=== PATIENT | female | born 1965 | race Caucasian/White ===

== ENCOUNTER 2017-02-20 02:58 | Emergency (ER) | payer MEDICAID, SELFPAY ==
[2017-02-20 03:13] VITALS: RESP 16
[2017-02-20 03:46] LABS: RBC URINE 35 /hpf (0-3); URINE BACTERIA RARE (<OCC); URINE BILIRUBIN NEGATIVE (NEGATIVE); URINE BLOOD 2+ (NEGATIVE); URINE COLOR Yellow (YELLOW); URINE GLUCOSE (UA) NORMAL (Normal); URINE KETONE NEGATIVE (NEGATIVE); URINE LEUKOCYTE ESTERASE 2+ Leu/uL (Negative); URINE PROTEIN 1+ mg/dL (NEGATIVE); URINE UROBILINOGEN NORMAL mg/dL (0.2-1.0); WBC URINE 59 /hpf (0-5)
[2017-02-20] MEDS ORDERED: Sodium Chloride 0.9% 500 ML IV STA (03:51)
[2017-02-20] MEDS ORDERED: Sodium Chloride 0.9% 1,000 ML ONE (03:58)
[2017-02-20 04:03] LABS: BASO # 0.1 K/uL (0.0-0.2); BASO % 0.5 % (0.0-2.0); EOS # 0.3 K/uL (0.0-0.7); EOS % 2.3 % (0.0-4.0); LYMPH # 1.7 K/uL (1.0-4.3); LYMPH % 13.6 % (20.0-40.0); MEAN CELL VOLUME 87.1 fL (81.0-99.0); MEAN CORPUSCULAR HEMOGLOBIN 29.1 pg (27.0-31.0); MEAN CORPUSCULAR HGB CONC 33.4 g/dL (33.0-37.0); MEAN PLATELET VOLUME 8.5 fL (7.2-11.7); MONO # 0.7 K/uL (0.0-0.8); MONO % 5.9 % (0.0-10.0); RED CELL DISTRIBUTION WIDTH 13.2 % (11.5-14.5); WHITE BLOOD COUNT 12.2 K/uL (4.8-10.8)
[2017-02-20 04:12] LABS: CHLORIDE 102 mmol/L (98-107)
[2017-02-20 04:13] LABS: POTASSIUM 4.6 mmol/L (3.6-5.2); SODIUM 139 mmol/L (132-148)
[2017-02-20 04:15] LABS: ALB/GLOB RATIO 1.4 (1.0-2.1); ALKALINE PHOSPHATASE 75 U/L (38-126); ALT/SGPT 37 U/L (9-52); AST/SGOT 27 U/L (14-36); BILIRUBIN,TOTAL 0.5 mg/dL (0.2-1.3); BLOOD UREA NITROGEN 16 mg/dL (7-17); CARBON DIOXIDE 25 mmol/L (22-30); GFR AFRICAN-AMERICAN > 60; TOTAL PROTEIN 7.4 g/dL (6.3-8.3)
[2017-02-20 04:16] LABS: CALCIUM 8.7 mg/dl (8.6-10.4); GLUCOSE,RANDOM 108 mg/dL (65-105)
--- NOTE | 2017-02-20 04:42 | C.PDOC ---
History Of Present Illness 51 year old female presents to the ED with complaints of pain to the left lower back radiating to left lower quadrant, dysuria, and urinary frequency since yesterday. Patient denies any nausea, vomiting, or diarrhea. Time Seen by Provider: 02/20/17 03:17 Chief Complaint (Nursing): Abdominal Pain History Per: Patient History/Exam Limitations: no limitations Onset/Duration Of Symptoms: Hrs Current Symptoms Are (Timing): Still Present Location Of Pain/Discomfort: LLQ Radiation Of Pain To:: Other (LLQ ) Quality Of Discomfort: "Pain" Associated Symptoms: denies: Fever, Chills, Nausea, Vomiting, Diarrhea Recent travel outside of the [place]: No Abnormal Vaginal Bleeding: No Past Medical History Reviewed: Historical Data, Nursing Documentation, Vital Signs Vital Signs: Last Vital Signs Temp 97.5 F L 02/20/17 05:17 Pulse 61 02/20/17 05:17 Resp 16 02/20/17 05:17 BP 144/80 02/20/17 05:17 Pulse Ox 98 02/20/17 05:17 - Medical History PMH: HTN Surgical History: Appendectomy Family History: States: Unknown Family Hx - Social History Hx Tobacco Use: No Hx Alcohol Use: No Hx Substance Use: No - Immunization History Hx Tetanus Toxoid Vaccination: No Hx Influenza Vaccination: No Hx Pneumococcal Vaccination: No Review Of Systems Constitutional: Negative for: Fever, Chills, Sweats Cardiovascular: Negative for: Chest Pain, Palpitations Respiratory: Negative for: Cough, Shortness of Breath Gastrointestinal: Positive for: Abdominal Pain (LLQ pain radiating from back pain ). Negative for: Nausea, Vomiting, Diarrhea Musculoskeletal: Positive for: Back Pain (left lower back pain) Physical Exam - Physical Exam Appears: Non-toxic, No Acute Distress Skin: Warm, Dry Oral Mucosa: Moist Neck: Supple Chest: Symmetrical, No Deformity Cardiovascular: Rhythm Regular Respiratory: No Rales, No Rhonchi, No Stridor, No Wheezing Gastrointestinal/Abdominal: Soft, Tenderness (LLQ tenderness ), No Distention, No Guarding, No Rebound Back: CVA Tenderness (slight left CVA tenderness ) Extremity: Normal ROM, No Tenderness Neurological/Psych: Oriented x3 ED Course And Treatment - Laboratory Results Result Diagrams: 02/20/17 03:58 02/20/17 03:58 O2 Sat by Pulse Oximetry: 99 (room air ) Progress Note: Patient was given fluids and toradol, macrobid, and phenazopyridine for pain and was better upon re-evaluation. Disposition Counseled Patient/Family Regarding: Diagnosis, Need For Followup, Rx Given - Disposition Disposition: HOME/ ROUTINE Disposition Time: 04:37 Condition: STABLE Additional Instructions: Please follow up with PMD Increase PO fluids Take meds as directed Return to ER if worse Prescriptions: Nitrofurantoin Macrocrystals [Macrobid] 1 cap PO BID #14 cap Phenazopyridine HCl [Pyridium] 100 mg PO TID #6 tab Instructions: Urinary Tract Infection in Women (ED) - Clinical Impression Clinical Impression: Urinary tract infection - Scribe Statement The provider has reviewed the documentation as recorded by the Scribskye Mo All medical record entries made by the Barrettibskye were at my direction and personally dictated by me. I have reviewed the chart and agree that the record accurately reflects my personal performance of the history, physical exam, medical decision making, and the department course for this patient. I have also personally directed, reviewed, and agree with the discharge instructions and disposition.
[2017-02-20 05:17] VITALS: BP 144/80; PULSE 61; TEMP 97.5
[2017-02-20 06:37] VITALS: O2SAT 99
== END 2017-02-20 05:17 | disposition home or self-care (01) ==
LOC: C.ER 02:58
DX: N39.0 Urinary tract infection, site not specified (principal)
CPT/HCPCS: 80053; 81001; 84703; 85025; 87086; 87181; 96361; 96374; 99285; J1885; J7040

== ENCOUNTER 2018-11-02 09:01 | Outpatient (CLI) | payer SELFPAY | END 2018-11-02 09:02 | disposition home or self-care (01) | LOC: C.MAMMO 09:01 | DX: R92.8 Other abnormal and inconclusive findings on diagnostic imaging of breast (principal) ==